=== PATIENT | male | born 1955 | race Caucasian/White ===

== ENCOUNTER 2020-11-28 05:52 | Inpatient (IN) | payer MEDICARE, OTHER ==
[2020-11-28] MEDS ORDERED: SODIUM CHLORIDE 0.9% 1,000 ML IV STA (06:12)
[2020-11-28] MEDS ORDERED: LABETALOL 5 MG/ML VIAL MDV IVP STA ×2 (06:13→08:52)
--- NOTE | 2020-11-28 06:22 | ED ---
Weakness HPI - General Chief complaint: Weakness Stated complaint: Weakness Time Seen by Provider: 11/28/20 06:07 Source: patient, EMS, RN notes reviewed Mode of arrival: EMS Limitations: no limitations - History of Present Illness Initial comments: This is a 65-year-old male presents emergency Department chief complaint of generalized weakness. Patient woke up states that his legs felt weak, or giving out. Patient states that he couldn't get up so he was yelling for his . He states currently he has no complaints. He denies any headache, dizziness, blurred vision, chest pain, shortness breath, abdominal pain or any focal weakness. Family stated that they thought some he said that he had some right- sided facial drooping but they did not notice it and he states that he is acting his usual self. - Related Data Home Medications Medication Instructions Recorded Confirmed No Known Home Medications 11/28/20 11/28/20 Allergies Allergy/AdvReac Type Severity Reaction Status Date / Time No Known Drug Allergies Allergy Unknown Verified 11/28/20 07:48 Review of Systems ROS Statement: Those systems with pertinent positive or pertinent negative responses have been documented in the HPI. ROS Other: All systems not noted in ROS Statement are negative. Past Medical History Past Medical History: Hyperlipidemia, Hypertension History of Any Multi-Drug Resistant Organisms: None Reported Past Surgical History: No Surgical Hx Reported Past Psychological History: No Psychological Hx Reported Smoking Status: Never smoker Past Alcohol Use History: None Reported Past Drug Use History: None Reported General Exam Limitations: no limitations General appearance: alert, in no apparent distress Head exam: Present: atraumatic, normocephalic, normal inspection Eye exam: Present: normal appearance, PERRL, EOMI. Absent: scleral icterus, conjunctival injection, periorbital swelling ENT exam: Present: normal exam, normal oropharynx, mucous membranes moist Neck exam: Present: normal inspection, full ROM. Absent: tenderness, meningismus, lymphadenopathy Respiratory exam: Present: normal lung sounds bilaterally. Absent: respiratory distress, wheezes, rales, rhonchi, stridor Cardiovascular Exam: Present: normal rhythm, tachycardia, normal heart sounds. Absent: systolic murmur, diastolic murmur, rubs, gallop, clicks GI/Abdominal exam: Present: soft, normal bowel sounds. Absent: distended, tenderness, guarding, rebound, rigid Extremities exam: Present: normal inspection, full ROM, normal capillary refill, other (Upper and lower extremity strength equal bilaterally). Absent: tenderness, pedal edema, joint swelling, calf tenderness Back exam: Present: full ROM Neurological exam: Present: alert, oriented X3, CN II-XII intact, reflexes normal, other (Finger to nose intact bilaterally). Absent: motor sensory deficit Skin exam: Present: warm, dry, intact, normal color. Absent: rash Course Vital Signs 11/28/20 11/28/20 11/28/20 05:54 05:59 06:58 Temperature 97.7 F Pulse Rate 109 H 105 H 96 Respiratory 16 16 16 Rate Blood Pressure 184/105 114/67 O2 Sat by Pulse 98 98 98 Oximetry 11/28/20 11/28/20 11/28/20 07:35 08:36 09:03 Temperature Pulse Rate 81 85 84 Respiratory 18 18 18 Rate Blood Pressure 161/92 198/101 164/97 O2 Sat by Pulse 98 98 98 Oximetry Medical Decision Making - Medical Decision Making Patient presented emergency from for generalized weakness. Patient had EMS reports that he had some right-sided weakness though any true 0, GCS of 15 with no focal deficits in emergency department. Workup reveals mild acute kidney injury, CT does not reveal any acute changes. Patient still very unsteady in his feet. Patient be admitted for further evaluation and workup including neurology consult. - Lab Data Result diagrams: 11/28/20 06:18 11/28/20 06:18 Lab Results 11/28/20 11/28/20 11/28/20 Range/Units 06:18 06:18 06:18 WBC 10.4 (3.8-10.6) k/uL RBC 4.46 (4.30-5.90) m/uL Hgb 12.6 L (13.0-17.5) gm/dL Hct 37.4 L (39.0-53.0) % MCV 83.8 (80.0-100.0) fL MCH 28.3 (25.0-35.0) pg MCHC 33.7 (31.0-37.0) g/dL RDW 15.8 H (11.5-15.5) % Plt Count 362 (150-450) k/uL MPV 7.3 Neutrophils % 65 % Lymphocytes % 24 % Monocytes % 5 % Eosinophils % 2 % Basophils % 1 % Neutrophils # 6.8 (1.3-7.7) k/uL Lymphocytes # 2.5 (1.0-4.8) k/uL Monocytes # 0.5 (0-1.0) k/uL Eosinophils # 0.3 (0-0.7) k/uL Basophils # 0.1 (0-0.2) k/uL PT 10.2 (9.0-12.0) sec INR 0.9 (<1.2) APTT 22.1 (22.0-30.0) sec Sodium 136 L (137-145) mmol/L Potassium 4.2 (3.5-5.1) mmol/L Chloride 105 (98-107) mmol/L Carbon Dioxide 21 L (22-30) mmol/L Anion Gap 10 mmol/L BUN 21 H (9-20) mg/dL Creatinine 1.36 H (0.66-1.25) mg/dL Est GFR (CKD-EPI)AfAm 62 (>60 ml/min/1.73 sqM) Est GFR (CKD-EPI)NonAf 54 (>60 ml/min/1.73 sqM) Glucose 169 H (74-99) mg/dL Lactic Ac Sepsis Rflx Plasma Lactic Acid Redd (0.7-2.0) mmol/L Calcium 8.9 (8.4-10.2) mg/dL Magnesium 1.8 (1.6-2.3) mg/dL Total Bilirubin 0.3 (0.2-1.3) mg/dL AST 22 (17-59) U/L ALT 10 (4-49) U/L Alkaline Phosphatase 102 (38-126) U/L Troponin I (0.000-0.034) ng/mL Total Protein 7.3 (6.3-8.2) g/dL Albumin 3.7 (3.5-5.0) g/dL Urine Color Urine Appearance (Clear) Urine pH (5.0-8.0) Ur Specific [place] (1.001-1.035) Urine Protein (Negative) Urine Glucose (UA) (Negative) Urine Ketones (Negative) Urine Blood (Negative) Urine Nitrite (Negative) Urine Bilirubin (Negative) Urine Urobilinogen (<2.0) mg/dL Ur Leukocyte Esterase (Negative) Urine RBC (0-5) /hpf Ur Squamous Epith Cells (0-4) /hpf Urine Mucus (None) /hpf 11/28/20 11/28/20 11/28/20 Range/Units 06:18 06:18 06:43 WBC (3.8-10.6) k/uL RBC (4.30-5.90) m/uL Hgb (13.0-17.5) gm/dL Hct (39.0-53.0) % MCV (80.0-100.0) fL MCH (25.0-35.0) pg MCHC (31.0-37.0) g/dL RDW (11.5-15.5) % Plt Count (150-450) k/uL MPV Neutrophils % % Lymphocytes % % Monocytes % % Eosinophils % % Basophils % % Neutrophils # (1.3-7.7) k/uL Lymphocytes # (1.0-4.8) k/uL Monocytes # (0-1.0) k/uL Eosinophils # (0-0.7) k/uL Basophils # (0-0.2) k/uL PT (9.0-12.0) sec INR (<1.2) APTT (22.0-30.0) sec Sodium (137-145) mmol/L Potassium (3.5-5.1) mmol/L Chloride (98-107) mmol/L Carbon Dioxide (22-30) mmol/L Anion Gap mmol/L BUN (9-20) mg/dL Creatinine (0.66-1.25) mg/dL Est GFR (CKD-EPI)AfAm (>60 ml/min/1.73 sqM) Est GFR (CKD-EPI)NonAf (>60 ml/min/1.73 sqM) Glucose (74-99) mg/dL Lactic Ac Sepsis Rflx Y Plasma Lactic Acid Redd 2.1 H* (0.7-2.0) mmol/L Calcium (8.4-10.2) mg/dL Magnesium (1.6-2.3) mg/dL Total Bilirubin (0.2-1.3) mg/dL AST (17-59) U/L ALT (4-49) U/L Alkaline Phosphatase (38-126) U/L Troponin I <0.012 (0.000-0.034) ng/mL Total Protein (6.3-8.2) g/dL Albumin (3.5-5.0) g/dL Urine Color Urine Appearance (Clear) Urine pH (5.0-8.0) Ur Specific [place] (1.001-1.035) Urine Protein (Negative) Urine Glucose (UA) (Negative) Urine Ketones (Negative) Urine Blood (Negative) Urine Nitrite (Negative) Urine Bilirubin (Negative) Urine Urobilinogen (<2.0) mg/dL Ur Leukocyte Esterase (Negative) Urine RBC (0-5) /hpf Ur Squamous Epith Cells (0-4) /hpf Urine Mucus (None) /hpf 11/28/20 Range/Units 08:31 WBC (3.8-10.6) k/uL RBC (4.30-5.90) m/uL Hgb (13.0-17.5) gm/dL Hct (39.0-53.0) % MCV (80.0-100.0) fL MCH (25.0-35.0) pg MCHC (31.0-37.0) g/dL RDW (11.5-15.5) % Plt Count (150-450) k/uL MPV Neutrophils % % Lymphocytes % % Monocytes % % Eosinophils % % Basophils % % Neutrophils # (1.3-7.7) k/uL Lymphocytes # (1.0-4.8) k/uL Monocytes # (0-1.0) k/uL Eosinophils # (0-0.7) k/uL Basophils # (0-0.2) k/uL PT (9.0-12.0) sec INR (<1.2) APTT (22.0-30.0) sec Sodium (137-145) mmol/L Potassium (3.5-5.1) mmol/L Chloride (98-107) mmol/L Carbon Dioxide (22-30) mmol/L Anion Gap mmol/L BUN (9-20) mg/dL Creatinine (0.66-1.25) mg/dL Est GFR (CKD-EPI)AfAm (>60 ml/min/1.73 sqM) Est GFR (CKD-EPI)NonAf (>60 ml/min/1.73 sqM) Glucose (74-99) mg/dL Lactic Ac Sepsis Rflx Plasma Lactic Acid Redd (0.7-2.0) mmol/L Calcium (8.4-10.2) mg/dL Magnesium (1.6-2.3) mg/dL Total Bilirubin (0.2-1.3) mg/dL AST (17-59) U/L ALT (4-49) U/L Alkaline Phosphatase (38-126) U/L Troponin I (0.000-0.034) ng/mL Total Protein (6.3-8.2) g/dL Albumin (3.5-5.0) g/dL Urine Color Light Yellow Urine Appearance Clear (Clear) Urine pH 6.0 (5.0-8.0) Ur Specific [place] 1.011 (1.001-1.035) Urine Protein 2+ H (Negative) Urine Glucose (UA) Negative (Negative) Urine Ketones Negative (Negative) Urine Blood Trace H (Negative) Urine Nitrite Negative (Negative) Urine Bilirubin Negative (Negative) Urine Urobilinogen <2.0 (<2.0) mg/dL Ur Leukocyte Esterase Negative (Negative) Urine RBC 2 (0-5) /hpf Ur Squamous Epith Cells <1 (0-4) /hpf Urine Mucus Rare H (None) /hpf Disposition Clinical Impression: TIA (transient ischemic attack), Weakness, ARAM (acute kidney injury) Disposition: ADMITTED IP TO THIS HOSP Condition: Fair Referrals: None,Stated [Primary Care Provider] - 1-2 days
[2020-11-28 06:43] LABS: Albumin 3.7 g/dL (3.5-5.0); Calcium 8.9 mg/dL (8.4-10.2); Magnesium 1.8 mg/dL (1.6-2.3); Potassium 4.2 mmol/L (3.5-5.1); Total Bilirubin 0.3 mg/dL (0.2-1.3); Total Protein 7.3 g/dL (6.3-8.2)
[2020-11-28 06:52] LABS: INR 0.9 (<1.2); Partial Thromboplastin Time 22.1 sec (22.0-30.0); Prothrombin Time 10.2 sec (9.0-12.0)
[2020-11-28 07:09] LABS: Basophils # (A) 0.1 k/uL (0-0.2); Basophils % (A) 1 %; Eosinophils # (A) 0.3 k/uL (0-0.7); Eosinophils % (A) 2 %; HCT 37.4 % (39.0-53.0); HGB 12.6 gm/dL (13.0-17.5); Lymphocytes # (A) 2.5 k/uL (1.0-4.8); Lymphocytes % (A) 24 %; MCH 28.3 pg (25.0-35.0); MCHC 33.7 g/dL (31.0-37.0); MCV 83.8 fL (80.0-100.0); Mean Platelet Volume 7.3; Monocytes # (A) 0.5 k/uL (0-1.0); Monocytes % (A) 5 %; Neutrophils # (A) 6.8 k/uL (1.3-7.7); Neutrophils % (A) 65 %; Platelet Count 362 k/uL (150-450); RBC 4.46 m/uL (4.30-5.90); RDW 15.8 % (11.5-15.5); WBC 10.4 k/uL (3.8-10.6)
--- NOTE | 2020-11-28 07:34 | CT ---
EXAMINATION TYPE: CT brain wo con DATE OF EXAM: 11/28/2020 COMPARISON: None HISTORY: Rt sided weakness CT DLP: 1052.[address] of the brain was performed. The ventricles, basal cisterns and sulci overlying the cerebral convexities demonstrate mild enlargem ent. There is no evidence for intracranial hemorrhage or sulcal effacement. There is decreased attenuation about the periventricular white matter and deep white matter of both c erebral hemispheres, compatible with chronic small vessel ischemia. Differential diagnosis does inclu de demyelination. No mass effects are seen.No midline shift. Osseous calvarium is intact. Pansinusitis. If symptoms persist consider MRI. IMPRESSION: 1. Age related atrophic and chronic small vessel ischemic change without acute intracranial process s een at this time.
--- NOTE | 2020-11-28 07:46 | XR ---
EXAMINATION TYPE: XR chest 2V DATE OF EXAM: 11/28/2020 COMPARISON: None INDICATION: Weakness TECHNIQUE: Frontal and lateral views of the chest are obtained. FINDINGS: The heart size is normal. The pulmonary vasculature is normal. The lungs are clear. IMPRESSION: 1. No acute pulmonary process.
[2020-11-28] MEDS ORDERED: LABETALOL SYRINGE 5 MG/ML IVP STA (08:31)
[2020-11-28 08:45] LABS: Appearance,Urine Clear (Clear); Bilirubin,Urine Negative (Negative); Blood,Urine Trace (Negative); Color,Urine Light Yellow; Glucose,Urine (UA) Negative (Negative); Ketones,Urine Negative (Negative); Leukocyte Esterase,Urine Negative (Negative); Mucus,Urine Rare /hpf; Nitrite,Urine Negative (Negative); Protein,Urine 2+ (Negative); RBC,Urine 2 /hpf (0-5); Specific Gravity,Urine 1.011 (1.001-1.035); Squamous Epithelial Cell,Urine <1 /hpf (0-4); Urobilinogen,Urine <2.0 mg/dL (<2.0)
[2020-11-28] MEDS ORDERED: ASPIRIN 325 MG TAB PO STA (09:33)
[2020-11-28] MEDS ORDERED: LABETALOL 5 MG/ML VIAL MDV IVP PRN (09:33)
[2020-11-28] MEDS: SODIUM CHLORIDE 0.9% 1,000 ML IV SCH (10:51)
[2020-11-28] MEDS ORDERED: LABETALOL 100 MG TAB PO STA (12:11)
[2020-11-28] MEDS ORDERED: ATORVASTATIN 80 MG TAB PO STA (12:46)
[2020-11-28] MEDS ORDERED: CLOPIDOGREL 75 MG TAB PO STA (12:47)
--- NOTE | 2020-11-28 13:11 | P.CNNES ---
History of Present Illness Consult date: 11/28/20 Requesting physician: Joe Sparks Reason for Consult: TIA History of Present Illness: This is a 65-year-old gentleman with history of hypertension (for about 15 years) as well as hyperlipidemia who is noncompliant with his medication, as well as he has bilateral hearing loss who presented emergency department on 11/28/2020 for right-sided weakness. Patient presents facility on 11/28/2020 around the 5:52 AM. Patient is accompanied with his family members ( and daughter). Patient stated that the he woke up around 5:00 in the morning today and the upon the getting out of bed heis right side is weak (upper and lower extremity) and he fell. His last normal state was around 11:00 at night yesterday. He denied any numbness that was new over the right side, visual disturbance, headache the, difficulty getting his words out or swallowing. His family noticed that he was slurring his speech in the morning but that resolved. Family did not notice any facial droop. Patient denies any history of stroke or seizure to his knowledge. With associated fall he denied any urinary, bowel incontinence, denied any tongue bite, denies any jerking of any extremities. Patient is not on any antiplatelets or anticoagulation. Patient is not taking any home medication. Per the patient when the EMS examined him they felt the patient had right facial droop but didn't see that as well and it is noted in the ED note the patient had bilateral leg weakness which the he stated he only has right arm and leg weakness. Of note patient states she has chronic neck pain as well as a chronic numbness tingling in the his feet been going on for years but denies any worsening. Currently he has no neck pain. Patient stated that the he has hypertension for at least 15 years as well as has history of hyperlipidemia and that stopped taking the medication on his own about 9 years ago since the he was uncomfortable law with the his physician. He doesn't remember what medication he was on. Patient denies of any tobacco use, alcohol use or any illicit drug use. Per family members his walking is off at baseline and he walks older than his age but today it more often now baseline now. Some of the workup in the hospital consisted of Initial vital signs: Blood pressure of 184/105, heart rate of 105, respiratory of 16, temperature of 97.7 Fahrenheit oral, and pulse ox of 98% room air. Patient a blood pressure what got as high as high as 198/101. He was getting labetalol IV pushes to lower the blood pressure. Then he had a blood pressure taken on the right arm which was 200/120 and the left arm over was 168/92. CBC the differential as a hemoglobin of 12.6 which is slightly low hematocrit of 37.4 otherwise it's unremarkable. Chemistry panel is initial glucose is 169 which slightly elevated, creatinine is 1.36 which is also elevated and there is no baseline creatinine in our facility, sodium is 136 which is minimally low but is unremarkable. Plasma lactic venous 2. [address] of the head is reported as age-related atrophic and chronic small vessel ischemic change without acute intracranial process seen at this time. Per ED team they felt no focal deficits. No IV tpa since no deficit and outside window. Review of Systems Review of system: The 12 point system was reviewed and apparent positive and negative per HPI. Past Medical History Past Medical History: Hyperlipidemia, Hypertension History of Any Multi-Drug Resistant Organisms: None Reported Past Surgical History: No Surgical Hx Reported Past Psychological History: No Psychological Hx Reported Smoking Status: Never smoker Past Alcohol Use History: None Reported Past Drug Use History: None Reported Medications and Allergies Home Medications Medication Instructions Recorded Confirmed Type No Known Home Medications 11/28/20 11/28/20 History Allergies Allergy/AdvReac Type Severity Reaction Status Date / Time No Known Drug Allergies Allergy Unknown Verified 11/28/20 07:48 Physical Examination - Vital Signs Vital Signs: Vital Signs Temp Pulse Pulse Resp BP BP BP 11/28/20 11:56 97.8 F 86 16 200/120 168/92 11/28/20 10:10 88 18 146/96 11/28/20 09:03 84 18 164/97 11/28/20 08:36 85 18 198/101 11/28/20 07:35 81 18 161/92 11/28/20 06:58 96 16 114/67 11/28/20 05:59 105 H 16 184/105 11/28/20 05:54 97.7 F 109 H 16 Pulse Ox 11/28/20 11:56 98 11/28/20 10:10 98 11/28/20 09:03 98 11/28/20 08:36 98 11/28/20 07:35 98 11/28/20 06:58 98 11/28/20 05:59 98 11/28/20 05:54 98 Intake and Output 11/27/20 11/28/20 11/28/20 22:59 06:59 14:59 Other: Weight 90.718 kg 77.5 kg GENERAL: The patient is lying in bed and is not in acute distress. CHEST: The heart rate is regular rate rhythm. No murmurs to auscultation. LUNG: Clear to auscultation bilaterally no wheezing noted throughout. Not labored breathing. ABDOMEN/GI: Bowel sounds present in all 4 quadrants. No tenderness to palpation throughout. NEUROLOGICAL: Higher mental function: The patient is awake, alert, oriented to self, place and time. Patient is following commands. No aphasia and no neglect. Cranial nerves: The pupils are round, equal and reactive to light and accom modation. Visual red are full to confrontation throughout. Extraocular movement is intact no nystagmus is noted. Facial sensation is normal to touch throughout. The facial strength is normal throughout. Hearing is moderately to severely decreased bilaterally to hand rub. Tongue is midline and moved [id number] without any difficulty. No dysarthria is noted. Shoulder shrug is normal bilaterally. Motor: Gait is unsteady walking and leaned towards the right. 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 Otherwise 5 over 5 throughout. Normal tone and bulk. Cerebellum: Unsteady with finger to nose and heel to hendrickson over the right (patient was overshooting over the right finger to nose). Otherwise normal over the left. Sensation: Sensation is normal to touch throughout. Reflexes (right/left): Biceps 2-3+; triceps 2+; brachioradialis 3+; patellar2+; ankles1+. Plantars are mute bilaterally. Results Calcium is 8.9, AST 22 ALT of 10 which is within normal limits. Coagulation study: PT of 10.2, INR 0.9 and PTT of 22.1. Urine analysis negative for urinary tract infection. - Laboratory Findings CBC and BMP: 11/28/20 06:18 11/28/20 06:18 Abnormal Lab Findings: Abnormal Labs 11/28/20 11/28/20 11/28/20 06:18 06:18 06:18 Hgb 12.6 L Hct 37.4 L RDW 15.8 H Sodium 136 L Carbon Dioxide 21 L BUN 21 H Creatinine 1.36 H Glucose 169 H Plasma Lactic Acid Redd 2.1 H* Urine Protein Urine Blood Urine Mucus 11/28/20 11/28/20 08:31 09:20 Hgb Hct RDW Sodium Carbon Dioxide BUN Creatinine Glucose Plasma Lactic Acid Redd 2.2 H* Urine Protein 2+ H Urine Blood Trace H Urine Mucus Rare H Assessment and Plan Assessment: Acute right-sided weakness (on examination he had right upper > lower extremity weakness and seems ataxic on the right) likely due to acute ischemic stroke. No IV tpa since outside window (last normal at 11pm on 11/27/20 and woke-up at 5am on 11/28/20 with symptoms). Stroke risk factors is uncontrolled hypertension Escalated hypertension (with hx of HTN for 15 years and is non-compliant with medications for past 9 years) History of Hyperlipidemia (non-compliant with medication) Hard of hearing of both ears Plan: The ED the patient was given aspirin 325 once. I started the patient on aspirin 81 mg and the Plavix 75 mg (he was not on any home antiplatelets). I loaded the patient with Plavix the 300 mg once. Started the patient on Lipitor 80 mg daily at bedtime with a loading dose now. Ordered MRI of the brain, 2-D echo, lipid panel, carotid duplex, TSH, hemoglobin A1c. Consulted PT and OT. Placed the patient on every 4 hours neuro checks and that continuous cardiac monitoring. Regarding the uncontrolled hypertension cardiology is consulted. From a neurological standpoint allow permissive hypertension for 24 hours then after that gradually controlled blood pressure, avoid any drastic blood pressure dropped more than the 15% within 24 hours to avoid any and ischemia. We'll defer the rest of the medical management to the primary team. The plan is discussed with the patient and his family members ( and daughter are at bedside) Thank you for the consultation. Darrick Carson MD Neuro-Hospitalist Time with Patient: Greater than 30
--- NOTE | 2020-11-28 13:55 | US ---
EXAMINATION TYPE: US carotid duplex BILAT DATE OF EXAM: 11/28/2020 COMPARISON: NONE CLINICAL HISTORY: stroke. Exam done portable. EXAM MEASUREMENTS: RIGHT: Peak Systolic Velocity (PSV) cm/sec ----- Right CCA: 76.7 ----- Right ICA: 76.3 ----- Right ECA: 135.0 ICA/CCA ratio: 1.0 RIGHT: End Diastole cm/sec ----- Right CCA: 16.3 ----- Right ICA: 19.7 ----- Right ECA: 14.1 LEFT: Peak Systolic Velocity (PSV) cm/sec ----- Left CCA: 57.1 ----- Left ICA: 78.2 ----- Left ECA: 96.6 ICA/CCA ratio: 1.4 LEFT: End Diastole cm/sec ----- Left CCA: 16.2 ----- Left ICA: 28.9 ----- Left ECA: 0.0 VERTEBRALS (direction of flow): Right Vertebral: Antegrade Left Vertebral: Antegrade Rhythm: Normal No significant stenosis IMPRESSION: 1. No significant flow-limiting stenosis NASCET criteria was used in interpretation of this exam? Criteria for Assigning % of Stenosis / Diameter reduction (Estimation based on the indirect measurements of the internal carotid artery velocities (ICA PSV). 1. Normal (no stenosis)=ICA PSV < 125 cm/s: ratio < 2.0: ICA EDV<40 cm/s. 2. Less than 50% stenosis=ICA PSV < 125 cm/s: ratio < 2.0: ICA EDV<40 cm/s. 3. 50 to 69% stenosis=ICA PSV of 125 to 230 cm/s: ration 2.0 ? 4.0: ICA EDV 40-100 cm/s. 4. Greater than 70% stenosis to near occlusion= ICA PSV > 230 cm/s: ratio > 4.0: ICA EDV > 100 cm/s. 5. Near occlusion= ICA PSV velocities may be low or undetectable: variable ratio and ICA EDV. 6. Total occlusion=unable to detect flow.
[2020-11-28] MEDS ORDERED: ACETAMINOPHEN TAB 500 MG TAB PO PRN (17:01)
[2020-11-28] MEDS ORDERED: ALPRAZolam 0.25 MG TAB PO PRN (17:01)
--- NOTE | 2020-11-28 17:12 | MR ---
EXAMINATION TYPE: MR brain wo con DATE OF EXAM: 11/28/2020 COMPARISON: None HISTORY: Right sided weakness and ataxia Images obtained of the brain without contrast. There is mild cerebral cortical atrophy. There is no mass effect nor midline shift. There is no evide nce of intracranial hemorrhage. On the diffusion images there is 1 cm area of increased signal in the posterior left thalamus. This has increased signal on the T2 and FLAIR images. The brainstem is inta ct. Cerebellum is intact. I see no evidence of an acute cortical infarct. Corpus callosum is intact. There is no evidence of orbital mass. There is extensive mucosal thickenin g in the paranasal sinuses. There is relative sparing of the left maxillary sinus. There is increased signal in the right mastoid sinus consistent with mastoiditis. IMPRESSION: Cerebral atrophy. Acute infarct left thalamus. Severe pansinusitis. Right-sided mastoiditis. Right side maxillary sinus disease is somewhat expansil e mucocele should be considered.
[2020-11-28 17:39] LABS: Amphetamine Screen,Urine Not Detected (NotDetected); Barbiturate Screen,Urine Not Detected (NotDetected); Benzodiazepines Screen,Urine Not Detected (NotDetected); Cocaine Screen,Urine Not Detected (NotDetected); Methadone Screen, Urine Not Detected (NotDetected); Opiate Screen,Urine Not Detected (NotDetected); Oxycodone Screen, Urine Not Detected (NotDetected); Phencyclidine Screen,Urine Not Detected (NotDetected); Tricyclic Antidepressant,Urine Not Detected (NotDetected); Urn Cannabinoid Scrn Not Detected (NotDetected)
--- NOTE | 2020-11-28 18:58 | HP ---
HISTORY AND PHYSICAL DATE OF SERVICE: 11/28/2020 CHIEF COMPLAINT: Weakness. HISTORY OF PRESENT ILLNESS: This 65-year-old gentleman with a past medical history of hypertension and hyperlipidemia, being followed by no primary physician in the outpatient setting, was admitted with complaints of weakness. The patient has apparently general weakness, right more than the left, and his legs were giving out, according to him, and he came to [facility] and was admitted for further evaluation and treatment. There is no history of any fever, rigor or chills. The patient was also seen by Neurology, who recommended MRI scan as well as antiplatelet agents. Further workup also. The initial CT scan of the brain, which was reviewed personally by me, showed age-related atrophic changes and chronic small-vessel ischemic changes; no acute changes. A carotid Doppler showed no significant stenosis. There is no history of any fever, rigor or chills. PAST MEDICAL HISTORY: History of hypertension, hyperlipidemia. HOME MEDICATIONS: None. ALLERGIES: NONE. FAMILY HISTORY: No history of heart disease or strokes in the family. SOCIAL HISTORY: No history of smoking. No history of alcohol intake. REVIEW OF SYSTEMS: ENT: No diminished hearing. No diminished vision. CARDIOVASCULAR SYSTEM: No angina, palpitations. RESPIRATORY SYSTEM: No cough, hemoptysis. GI: No nausea, vomiting. : No dysuria. NERVOUS SYSTEM: As mentioned earlier. ALLERGY/IMMUNOLOGY: No asthma or hay fever. MUSCULOSKELETAL: As mentioned earlier. HEMATOLOGY/ONCOLOGY: No history of anemia. ENDOCRINE: No history of diabetes, hypothyroidism. CONSTITUTIONAL: As mentioned earlier. DERMATOLOGY: Negative. RHEUMATOLOGY: Negative. PSYCHIATRY: As mentioned earlier. PHYSICAL EXAMINATION: Patient alert and oriented x3. Pulse 86, blood pressure 200/102, respirations 16, temperature 97.8, pulse ox 98% on room air. HEENT: Conjunctivae normal. Oral mucosa moist. NECK: No jugular venous distention. No carotid bruit. No lymph node enlargement. CARDIOVASCULAR: S1, S2 muffled. No S3. No S4. RESPIRATION: Breath sounds diminished at the bases. A few rhonchi. No crackles. ABDOMEN: Soft, nontender. No mass palpable. LEGS: No edema. No swelling. NERVOUS SYSTEM: Higher functions as mentioned earlier. Diffuse generalized weakness and minimal weakness on the right also present, more than the left. SKIN: No ulcer, rash, bleeding. JOINTS: No active deforming arthropathy. LABS: Lactic acid is 2.2, 2.8. WBC 10.4, hemoglobin 12.6. Creatinine is 1.36. UA noted. Chest x-ray which was reviewed personally by me showed no acute abnormality. ASSESSMENT: 1. Acute right-sided weakness, possibly left-sided acute stroke. 2. Gait dysfunction. 3. Hypertension. 4. Hyperlipidemia. 5. Increased creatinine with acute renal failure, possibly secondary to dehydration. 6. Hyponatremia. 7. Anemia, normocytic anemia of chronic disease. 8. Elevated lactic acid. Rule out sepsis. 9. Rule out sinusitis. RECOMMENDATIONS AND DISCUSSION: In this 65-year-old gentleman who presented with multiple complex medical issues, we will monitor the patient closely, continue the current medications, continue symptomatic treatment. Otherwise at this time await MRI scan. Other than that, continue with antiplatelet agents. DVT prophylaxis. Prognosis is guarded because of multiple complex medical issues. Further recommendations to follow. Also recommend that the patient follow up with a primary physician in the outpatient setting. ROBERTL / LOUN: [id number] /
[2020-11-28] MEDS: HEPARIN SODIUM,PORCINE/PF 5,000 UNIT/0.5 ML SYRINGE SQ SCH (21:26)
[2020-11-29] MEDS: SODIUM CHLORIDE 0.9% 1,000 ML IV SCH (00:04)
[2020-11-29] MEDS ORDERED: ASPIRIN 325 MG TAB PO SCH (09:00)
[2020-11-29] MEDS: ASPIRIN 81 MG PO SCH (09:01)
[2020-11-29] MEDS: CLOPIDOGREL 75 MG TAB PO SCH (09:02)
[2020-11-29] MEDS: HEPARIN SODIUM,PORCINE/PF 5,000 UNIT/0.5 ML SYRINGE SQ SCH ×2 (09:02→20:53)
[2020-11-29 09:42] LABS: Basophils # (A) 0.05 X 10*3/uL (0.00-0.10); Basophils % (A) 0.6 %; Eosinophils % (A) 3.4 %; HGB 11.4 g/dL (13.0-17.0); Lymphocytes # (A) 2.08 X 10*3/uL (0.90-5.00); Lymphocytes % (A) 23.3 %; MCH 26.8 pg (27.0-32.0); MCHC 31.7 g/dL (32.0-37.0); MCV 84.5 fL (80.0-97.0); Mean Platelet Volume 9.7 fL (9.5-12.2); Monocytes % (A) 7.9 %; Neutrophils # (A) 5.75 X 10*3/uL (1.80-7.70); Neutrophils % (A) 64.5 %; Platelet Count 304 X 10*3/uL (140-440); RBC 4.26 X 10*6/uL (4.40-5.60); RDW 15.2 % (11.5-14.5); WBC 8.91 X 10*3/uL (4.50-10.00)
[2020-11-29] MEDS: lisinopriL 5 MG TAB PO SCH (10:53)
[2020-11-29 11:14] LABS: African American GFR (CKD) 59.8 (60.0-200.0); Anion Gap 11.7 mmol/L (4.00-12.00); BUN/Creat Ratio 15.71 Ratio (12.00-20.00); Carbon Dioxide 21.3 mmol/L (21.6-31.8); Chol/HDL Ratio 6.3; Non-African American GFR(CKD) 51.6 (60.0-200.0); Potassium 4.3 mmol/L (3.5-5.5)
[2020-11-29] MEDS: MULTIVITAMINS, THERA 1 EACH TAB PO SCH (12:43)
[2020-11-29] MEDS: THIAMINE 100 MG TAB PO SCH (12:43)
[2020-11-29] MEDS: FOLIC ACID 1 MG TAB PO SCH (12:43)
--- NOTE | 2020-11-29 12:57 | P.CRDCN ---
History of Present Illness History of present illness: HISTORY OF PRESENTING ILLNESS This is a pleasant 65-year-old male past medical history significant for hypertension and dyslipidemia and noncompliance medication. He does not follow with a counselor dormitory. We have been asked to see in consultation for hypertension. Patient is seen and examined at bedside, no acute distress. Patient presented to the emergency department on 11/28/2020 for right-sided weakness. Patient stated that the he woke up around 5:00 in the morning and the upon the getting out of bed his right side was weak. His family noticed that he was slurring his speech in the morning but that resolved. EMS was called. EMS examined him they felt the patient had right facial droop. CT of the head is reported as age-related atrophic and chronic small vessel ischemic change without acute intracranial process seen. MRI of the brain revealed acute infarct left thalamus, cerebral atrophy, severe bradshaw sinusitis, right-sided mastoiditis. Carotid ultrasound revealed no significant flow-limiting stenosis. On admission patient's blood pressure was 180s/100s. EKG revealed sinus tachycardia, heart rate 110, nonspecific STT wave abnormalities. Laboratory data reviewed, WBC 8, Hgb 11.4, Plt 304, sodium 136, potassium 4.2, BUN 22, serum creatinine 1.4, hemoglobin A1c 8.0, magnesium 1.8, troponin negative 1, triglycerides 195, cholesterol 189, LDL 120, HDL 30, TSH within normal limits, urine tox screen negative. Patient denies any chest pain, shortness of breath, lightheadedness, dizziness. Patient denies any history of LA, previous stroke, coronary artery disease. He denies tobacco use or alcohol use. He denies family history of heart disease. Telemetry tracings indicate sinus rhythm heart rate in the 70s80s. Chest xray no acute cardiopulmonary process. REVIEW OF SYSTEMS At the time of my exam: CONSTITUTIONAL: Denies fever or chills. CARDIOVASCULAR: Denies chest pain, shortness of breath, orthopnea, PND or palpitations. RESPIRATORY: Denies cough. GASTROINTESTINAL: Denies abdominal pain, diarrhea, constipation, nausea or vomiting. MUSCULOSKELETAL: Denies myalgias. NEUROLOGIC: +right sided weakness +right sided facial droop. Denies numbness, tingling, headacbe or weakness. ENDOCRINE: Denies fatigue, weight change, polydipsia or polyurina. GENITOURINARY: Denies burning, hematuria or urgency with micturation. HEMATOLOGIC: Denies history of anemia or bleeding. PHYSICAL EXAMINATION Blood pressure 170/90 heart rate 90 afebrile and maintaining oxygen saturation on 98% on room air. CONSTITUTIONAL: No apparent distress. HEENT: Head is normocephalic. Pupils are equal, round. Sclerae anicteric. Mucous membranes of the mouth are moist. No JVD. No carotid bruit. CHEST EXAMINATION: Lungs are clear to auscultation. No chest wall tenderness is noted on palpation or with deep breathing. HEART EXAMINATION: Regular rate and rhythm. S1, S2 heard. No murmurs, gallops or rub. ABDOMEN: Soft, nontender. Positive bowel sounds. EXTREMITIES: 2+ peripheral pulses, no lower extremity edema and no calf tenderness. NEUROLOGIC EXAMINATION: Patient is awake, alert and oriented x3. Right sided facial asymmetry with smiling noted ASSESSMENT Acute right sided weakness Acute Inarct Left thalamus Newly diagnosed diabetes mellitus type 2 Hypertension, uncontrolled History of hyperlipidemia, noncompliant with medication PLAN 2D echocardiogram ordered will follow up on results Start lisinopril 5 mg daily, and adjust as needed. Continue aspirin, statin, Plavix Neurology following Further recommendations based on clinical course Nurse Practitioner note has been reviewed, I agree with a documented findings and plan of care. Patient was seen and examined. Past Medical History Past Medical History: Hyperlipidemia, Hypertension History of Any Multi-Drug Resistant Organisms: None Reported Past Surgical History: No Surgical Hx Reported Past Psychological History: No Psychological Hx Reported Smoking Status: Never smoker Past Alcohol Use History: None Reported Past Drug Use History: None Reported Medications and Allergies Home Medications Medication Instructions Recorded Confirmed Type No Known Home Medications 11/28/20 11/28/20 History Allergies Allergy/AdvReac Type Severity Reaction Status Date / Time No Known Drug Allergies Allergy Unknown Verified 11/28/20 07:48 Physical Exam Vitals: Vital Signs Temp Pulse Pulse Resp BP BP BP 11/29/20 08:21 97.6 F 90 18 170/90 11/29/20 02:13 97.7 F 85 20 177/94 11/28/20 20:47 97.5 F L 86 18 150/81 11/28/20 15:00 97.9 F 78 16 143/75 11/28/20 11:56 97.8 F 86 16 200/120 168/92 11/28/20 10:10 88 18 146/96 Pulse Ox 11/29/20 08:21 98 11/29/20 02:13 94 L 11/28/20 20:47 95 11/28/20 15:00 96 11/28/20 11:56 98 11/28/20 10:10 98 Intake and Output 11/28/20 11/29/20 11/29/20 22:59 06:59 14:59 Output Total 300 200 Balance -300 -200 Output: Urine 300 200 Other: Voiding Method Urinal Results 11/29/20 05:03 11/29/20 05:03 Current Medications Generic Name Dose Route Start Last Admin Trade Name Freq PRN Reason Stop Dose Admin Acetaminophen 500 mg 11/28/20 17:01 Acetaminophen Tab 500 Mg Tab PO Q6HR PRN Fever and/ or Pain Alprazolam 0.25 mg 11/28/20 17:01 Alprazolam 0.25 Mg Tab PO TID PRN Anxiety Aspirin 81 mg 11/29/20 09:00 11/29/20 09:01 Aspirin 81 Mg PO 81 mg DAILY [facility] Administration Atorvastatin Calcium 80 mg 11/29/20 21:00 Atorvastatin 80 Mg Tab PO HS [facility] Clopidogrel Bisulfate 75 mg 11/29/20 09:00 11/29/20 09:02 Clopidogrel 75 Mg Tab PO 75 mg DAILY [facility] Administration Folic Acid 1 mg 11/29/20 12:00 Folic Acid 1 Mg Tab PO DAILY@1200 [facility] Heparin Sodium (Porcine) 5,000 unit 11/28/20 21:00 11/29/20 09:02 Heparin Sodium,Porcine/Pf 5,000 Unit/0.5 Ml Syringe SQ 5,000 unit Q12HR [facility] Administration Labetalol HCl 10 mg 11/28/20 09:33 Labetalol 5 Mg/Ml Vial Mdv IVP 11/29/20 09:34 Q1HR PRN Hypertension Lisinopril 5 mg 11/29/20 09:15 Lisinopril 5 Mg Tab PO DAILY [facility] Multivitamins 1 each 11/29/20 12:00 Multivitamins, Thera 1 Each Tab PO DAILY@1200 [facility] Thiamine HCl 100 mg 11/29/20 12:00 Thiamine 100 Mg Tab PO DAILY@1200 [facility] Intake and Output 11/28/20 11/29/20 11/29/20 22:59 06:59 14:59 Output Total 300 200 Balance -300 -200 Output: Urine 300 200 Other: Voiding Method Urinal 11/28/20 06:18 11/28/20 06:18
--- NOTE | 2020-11-29 13:11 | P.PN ---
Subjective Progress Note Date: 11/29/20 Patient seen at bedside and he feels slightly better today. He denies of any new neurological problems. Objective - Vital Signs Vital signs: Vital Signs Temp 97.6 F 11/29/20 08:21 Pulse 90 11/29/20 08:21 Resp 18 11/29/20 08:21 BP 170/90 11/29/20 08:21 Pulse Ox 98 11/29/20 08:21 Intake & Output 11/28/20 11/29/20 11/29/20 18:59 06:59 18:59 Output Total 500 Balance -500 Weight 77.5 kg Output: Urine 500 Other: Voiding Method Urinal # Voids 1 - Exam GENERAL: The patient is lying in bed and is not in acute distress. NEUROLOGICAL: Higher mental function: The patient is awake, alert, oriented to self, place and time. Patient is following commands. No aphasia and no neglect. Cranial nerves: The pupils are round, equal and reactive to light and accommodation. Visual red are full to confrontation throughout. Extraocular movement is intact no nystagmus is noted. Facial sensation is normal to touch throughout. The facial strength is normal throughout. Hearing is moderately to severely decreased bilaterally to hand rub. Tongue is midline and moved [id number] without any difficulty. No dysarthria is noted. Shoulder shrug is normal bilaterally. Motor: Gait is unsteady walking and leaned towards the right. 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 Otherwise 5 over 5 throughout. Normal tone and bulk. Cerebellum: Unsteady with finger to nose and heel to hendrickson over the right (patient was overshooting over the right finger to nose). Otherwise normal over the left. Sensation: Sensation is normal to touch throughout. Reflexes (right/left): Biceps 2-3+; triceps 2+; brachioradialis 3+; patellar2+; ankles1+. Plantars are mute bilaterally. WORK-UP: TSH is 2.140 which is considered within normal limits Hemoglobin A1c is 8.0 which is elevated (Newly diagnosed DM) CT of the head is reported as age-related atrophic and chronic small vessel ischemic change without acute intracranial process seen at this time. MRI the brain is reported as cerebral atrophy. Acute infarct in the left thalam us. Severe. Sinusitis. Right-sided mastoiditis. Right side maxillary sinus disease somewhat expansile mucocele should be considered. Carotid duplex is reported as no significant flow limiting stenosis. - Labs CBC & Chem 7: 11/29/20 05:03 11/29/20 05:03 Labs: Abnormal Lab Results - Last 24 Hours (Table) 11/28/20 11/28/20 11/28/20 Range/Units 08:31 09:20 12:34 Hemoglobin A1c (4.0-6.0) % Plasma Lactic Acid Redd 2.2 H* 2.8 H* (0.7-2.0) mmol/L Urine Protein 2+ H (Negative) Urine Blood Trace H (Negative) Urine Mucus Rare H (None) /hpf 11/28/20 11/28/20 Range/Units 12:45 15:48 Hemoglobin A1c 8.0 H (4.0-6.0) % Plasma Lactic Acid Redd 3.0 H* (0.7-2.0) mmol/L Urine Protein (Negative) Urine Blood (Negative) Urine Mucus (None) /hpf Assessment and Plan Assessment: Acute ischemic stroke (MRI Brain shows ischemia over the left thalamus. Presented with right-sided weakness (on examination he had right upper > lower extremity weakness and seems ataxic on the right). No IV tpa since outside window (last normal at 11pm on 11/27/20 and woke-up at 5am on 11/28/20 with symptoms). Stroke is due to small vessel disease (uncontrolled hypertension, hyperlipidemia and has newly diagnosed DM). Escalated hypertension (with hx of HTN for 15 years and is non-compliant with medications for past 9 years) Newly diagnosed Diabetes (HbA1c 8.0) History of Hyperlipidemia (non-compliant with medication) Hard of hearing of both ears Plan: Continue aspirin 81 mg and the Plavix 75 mg (he was not on any home antiplatelets). Continue Lipitor 80 mg daily at bedtime for secondary stroke prophylaxis. Pending 2-D echo, lipid panel. Consulted PT and OT. Placed the patient on every 4 hours neuro check. On continuous cardiac monitoring: Sinus rhythm in 60-90's. Regarding the uncontrolled hypertension cardiology is consulted. Will defer management to the primary team and cardiology team. We'll defer the rest of the medical management to the primary team. Upon discharge, the patient needs to follow-up with a neurologist as outpatient within 1-2 weeks. The plan is discussed with the patient and his nurse. Darrick Carson MD Neuro-Hospitalist Time with Patient: Less than 30
--- NOTE | 2020-11-29 15:21 | ECHOF ---
Referral Reason:stroke MEASUREMENTS -------- HEIGHT: 157.5 cm WEIGHT: 77.1 kg BP: 168/92 IVSd: 1.1 cm (0.6 - 1.1) LVIDd: 4.9 cm (3.9 - 5.3) LVPWd: 1.1 cm (0.6 - 1.1) EDV(Teich): 115 ml IVSs: 1.8 cm LVIDs: 4.0 cm LVPWs: 1.7 cm %IVS Thck: 57 % ESV(Teich): 70 ml EF(Teich): 39 % %FS: 19 % SV(Teich): 44 ml LA Diam: 3.3 cm (2.7 - 3.8) RVIDd: 3.2 cm (< 3.3) LVLd A4C: 8.2 cm LVEDV MOD A4C: 150 ml LVLs A4C: 6.9 cm LVESV MOD A4C: 79 ml LVEF MOD A4C: 47 % SV MOD A4C: 71 ml LVLd A2C: 7.0 cm LVEDV MOD A2C: 57 ml LVLs A2C: 5.7 cm LVESV MOD A2C: 33 ml LVEF MOD A2C: 42 % SV MOD A2C: 24 ml EF Biplane: 43 % LVEDV MOD BP: 98 ml LVESV MOD BP: 55 ml LALs A4C: 5.0 cm LAAs A4C: 16.3 cm LAESV A-L A4C: 46 ml LAESV MOD A4C: 44 ml LALs A2C: 5.0 cm LAAs A2C: 12.6 cm LAESV A-L A2C: 27 ml LAESV MOD A2C: 26 ml LAESV(A-L): 35 ml LAESV Index (A-L): 19.71 ml/m Ao Diam: 3.5 cm (2.0 - 3.7) AV Cusp: 2.1 cm (1.5 - 2.6) EPSS: 1.3 cm MV E Emanuel: 1.12 m/s MV DecT: 107 ms MV Dec [place]: 10.5 m/s MV A Emanuel: 0.30 m/s MV E/A Ratio: 3.76 MV PHT: 31 ms AV Vmax: 1.08 m/s AV maxP.70 mmHg MV EF SLOPE: 32.68 mm/s (70 - 150) MV EXCURSION: 11.53 mm (> 18.000) FINDINGS -------- Sinus rhythm. This was a technically adequate study. The left ventricular size is normal. There is borderline concentric left ventricular hypertrophy. Overall left ventricular systolic function is mild-moderately impaired with, an EF between 40 - 45 % . Basal anterior LV wall motion is hypokinetic. Mid anterior LV wall motion is hypokinetic. The right ventricle is normal in size. Normal LA size by volume 22+/-6 ml/m2. The right atrium is normal in size. Interatrial and interventricular septum intact. The aortic valve is trileaflet, and appears structurally normal. No aortic stenosis or regurgitation. The mitral valve is normal. The tricuspid valve appears structurally normal. Unable to estimate RVSP due to inadequate TR jet s pectral doppler profile. There is no pulmonic regurgitation present. The aortic root size is normal. Normal inferior vena cava with normal inspiratory collapse consistent with estimated right atrial pre ssure of 5 mmHg. There is no pericardial effusion. CONCLUSIONS -------- 1. The left ventricular size is normal. 2. There is borderline concentric left ventricular hypertrophy. 3. Overall left ventricular systolic function is mild-moderately impaired with, an EF between 40 - 45 %. 4. Basal anterior LV wall motion is hypokinetic. 5. Mid anterior LV wall motion is hypokinetic. 6. The aortic valve is trileaflet, and appears structurally normal. No aortic stenosis or regurgitati on. 7. There is no pericardial effusion. CLINICAL EVALUATOR: TERESA Aguillon
--- NOTE | 2020-11-29 16:08 | PN ---
PROGRESS NOTE DATE OF SERVICE: 11/29/2020. This 65-year-old gentleman who was admitted with right-sided weakness was found to have left thalamic infarct on MRI scan. Cardiology and Neurology are following the patient closely. No chest pain. No palpitations. No fever. PHYSICAL EXAMINATION: Alert and oriented x2, mildly dysarthric. Pulse 90, blood pressure 170/90, respiration 18, temperature 97.6, pulse ox 98% on room air. HEENT: Conjunctivae normal. NECK: No jugular venous distention. CARDIOVASCULAR: S1, S2 muffled. RESPIRATION: Breath sounds diminished at the bases. A few scattered rhonchi. ABDOMEN: Soft, nontender. LEGS: No edema. No swelling. NERVOUS SYSTEM: Minimal weakness on the right side. Facial asymmetry also present. LAB STUDIES: WBC 8.3, hemoglobin 11.4. Lactic acid is 3. ASSESSMENT: 1. Acute right-sided weakness caused by left-sided acute cerebrovascular accident and thalamic infarct. 2. Gait dysfunction. 3. Hypertension. 4. Hyperlipidemia. 5. Increased creatinine with acute renal failure, possibly secondary to dehydration, present on admission. 6. Hyponatremia. 7. Anemia, normocytic anemia of chronic disease. 8. Elevated lactic acid, present on admission. No evidence of sepsis. 9. There is some evidence of sinusitis in the CT scan. I will recommend some antibiotics as well. MMODL / IJN: [id number] /
[2020-11-29 17:40] LABS: Glucose,Whole Blood 193 mg/dL (75-99)
[2020-11-29] MEDS: INSULIN ASPART (NovoLOG) 100 UNIT/ML VIAL SQ SCH ×2 (17:47→20:53)
[2020-11-29 20:50] LABS: Glucose,Whole Blood 189 mg/dL (75-99)
[2020-11-29] MEDS ORDERED: MELATONIN 3 MG TABLET PO SCH (21:00)
[2020-11-29] MEDS ORDERED: ATORVASTATIN 80 MG TAB PO SCH (21:00)
[2020-11-30 07:06] LABS: African American GFR (CKD) 50 (>60 ml/min/1.73 sqM); Anion Gap 8 mmol/L; Blood Urea Nitrogen 25 mg/dL (9-20); Calcium 8.8 mg/dL (8.4-10.2); Carbon Dioxide 22 mmol/L (22-30); Chloride 108 mmol/L (98-107); Glucose 139 mg/dL (74-99); Non-African American GFR(CKD) 43 (>60 ml/min/1.73 sqM); Potassium 4.1 mmol/L (3.5-5.1); Sodium 138 mmol/L (137-145)
[2020-11-30 07:30] LABS: Glucose,Whole Blood 137 mg/dL (75-99)
[2020-11-30] MEDS: INSULIN ASPART (NovoLOG) 100 UNIT/ML VIAL SQ SCH ×2 (08:25→13:20)
[2020-11-30] MEDS: lisinopriL 5 MG TAB PO SCH (08:26)
[2020-11-30] MEDS: CLOPIDOGREL 75 MG TAB PO SCH (08:26)
[2020-11-30] MEDS: HEPARIN SODIUM,PORCINE/PF 5,000 UNIT/0.5 ML SYRINGE SQ SCH (08:26)
[2020-11-30] MEDS: ASPIRIN 81 MG PO SCH (08:26)
[2020-11-30] MEDS ORDERED: lisinopriL 5 MG TAB PO ONE (09:15)
[2020-11-30 09:40] LABS: Basophils # (A) 0.04 X 10*3/uL (0.00-0.10); Basophils % (A) 0.5 %; Eosinophils # (A) 0.37 X 10*3/uL (0.04-0.35); Eosinophils % (A) 4.2 %; HCT 33.3 % (39.6-50.0); HGB 10.7 g/dL (13.0-17.0); Lymphocytes # (A) 2.31 X 10*3/uL (0.90-5.00); Lymphocytes % (A) 26.3 %; MCH 26.7 pg (27.0-32.0); MCHC 32.1 g/dL (32.0-37.0); Mean Platelet Volume 9.9 fL (9.5-12.2); Monocytes # (A) 0.66 X 10*3/uL (0.20-1.00); Monocytes % (A) 7.5 %; Neutrophils # (A) 5.38 X 10*3/uL (1.80-7.70); Platelet Count 285 X 10*3/uL (140-440); RBC 4.01 X 10*6/uL (4.40-5.60); RDW 15.2 % (11.5-14.5)
[2020-11-30 10:33] VITALS: BP 186/90; PULSE 77; RESP 20; TEMP 97.5
--- NOTE | 2020-11-30 11:53 | P.PN ---
Subjective Progress Note Date: 11/30/20 HISTORY OF PRESENTING ILLNESS This is a pleasant 65-year-old male past medical history significant for hyp ertension and dyslipidemia and noncompliance medication. He does not follow with a reed dipper. We have been asked to see in consultation for hypertension. Patient is seen and examined at bedside, no acute distress. Patient presented to the emergency department on 11/28/2020 for right-sided weakness. Patient stated that the he woke up around 5:00 in the morning and the upon the getting out of bed his right side was weak. His family noticed that he was slurring his speech in the morning but that resolved. EMS was called. EMS examined him they felt the patient had right facial droop. CT of the head is reported as age-related atrophic and chronic small vessel ischemic change without acute intracranial process seen. MRI of the brain revealed acute infarct left thalamus, cerebral atrophy, severe bradshaw sinusitis, right-sided mastoiditis. Carotid ultrasound revealed no significant flow-limiting stenosis. On admission patient's blood pressure was 180s/100s. EKG revealed sinus tachycardia, heart rate 110, nonspecific STT wave abnormalities. Laboratory data reviewed, WBC 8, Hgb 11.4, Plt 304, sodium 136, potassium 4.2, BUN 22, serum creatinine 1.4, hemoglobin A1c 8.0, magnesium 1.8, troponin negative 1, triglycerides 195, cholesterol 189, LDL 120, HDL 30, TSH within normal limits, urine tox screen negative. Patient denies any chest pain, shortness of breath, lightheadedness, dizziness. Patient denies any history of CT, previous stroke, coronary artery disease. He denies tobacco use or alcohol use. He denies family history of heart disease. Telemetry tracings indicate sinus rhythm heart rate in the 70s80s. Chest xray no acute cardiopulmonary process. 11/30/2020 Patient examined this morning at the bedside. He denies chest pain or pressure. Denies shortness of breath. Blood pressure remains elevated this morning with a reading of 186/90. Echocardiogram completed revealed ejection fraction 40-45%. Basal anterior and mid anterior LV wall motion hypokinesis. PHYSICAL EXAMINATION CONSTITUTIONAL: No apparent distress. HEENT: Head is normocephalic. Pupils are equal, round. Sclerae anicteric. Mucous membranes of the mouth are moist. No JVD. No carotid bruit. CHEST EXAMINATION: Lungs are clear to auscultation. No chest wall tenderness is noted on palpation or with deep breathing. HEART EXAMINATION: Regular rate and rhythm. S1, S2 heard. No murmurs, gallops or rub. EXTREMITIES: 2+ peripheral pulses, no lower extremity edema and no calf tenderness. ASSESSMENT Acute right sided weakness Acute Infarct Left thalamus Newly diagnosed diabetes mellitus type 2 Hypertension, uncontrolled History of hyperlipidemia, noncompliant with medication PLAN Continue current cardiac medications Increase lisinopril to 10 mg daily. Continue to monitor blood pressure Neurology following Further recommendations based on clinical course Nurse Practitioner note has been reviewed, I agree with a documented findings and plan of care. Patient was seen and examined. Objective - Vital Signs Vital signs: Vital Signs Temp 97.5 F L 11/30/20 07:00 Pulse 77 11/30/20 07:00 Resp 20 11/30/20 07:00 BP 186/90 11/30/20 07:00 Pulse Ox 96 11/30/20 07:00 Intake & Output 11/29/20 11/30/20 11/30/20 18:59 06:59 18:59 Output Total 280 350 Balance -280 -350 Output: Urine 280 350 Other: Voiding Method Urinal Urinal # Voids 1 2 - Labs CBC & Chem 7: 11/30/20 06:21 11/30/20 06:21 Labs: Abnormal Lab Results - Last 24 Hours (Table) 11/29/20 11/29/20 11/30/20 Range/Units 17:38 20:48 06:21 RBC 4.01 L (4.40-5.60) X 10*6/uL Hgb 10.7 L (13.0-17.0) g/dL Hct 33.3 L (39.6-50.0) % MCH 26.7 L (27.0-32.0) pg RDW 15.2 H (11.5-14.5) % Eosinophils # 0.37 H (0.04-0.35) X 10*3/uL Chloride (98-107) mmol/L BUN (9-20) mg/dL Creatinine (0.66-1.25) mg/dL Glucose (74-99) mg/dL POC Glucose (mg/dL) 193 H 189 H (75-99) mg/dL 11/30/20 11/30/20 Range/Units 06:21 07:29 RBC (4.40-5.60) X 10*6/uL Hgb (13.0-17.0) g/dL Hct (39.6-50.0) % MCH (27.0-32.0) pg RDW (11.5-14.5) % Eosinophils # (0.04-0.35) X 10*3/uL Chloride 108 H (98-107) mmol/L BUN 25 H (9-20) mg/dL Creatinine 1.62 H (0.66-1.25) mg/dL Glucose 139 H (74-99) mg/dL POC Glucose (mg/dL) 137 H (75-99) mg/dL
[2020-11-30 12:16] LABS: Glucose,Whole Blood 229 mg/dL (75-99)
[2020-11-30] MEDS: FOLIC ACID 1 MG TAB PO SCH (13:21)
[2020-11-30] MEDS: MULTIVITAMINS, THERA 1 EACH TAB PO SCH (13:21)
[2020-11-30] MEDS: THIAMINE 100 MG TAB PO SCH (13:21)
--- NOTE | 2020-11-30 14:38 | P.PN ---
Subjective Progress Note Date: 11/30/20 Patient seen at bedside and he feels he is doing somewhat better today compared to his initial presentation. Denies of any new neurological deficits. Objective - Vital Signs Vital signs: Vital Signs Temp 97.5 F L 11/30/20 07:00 Pulse 77 11/30/20 07:00 Resp 20 11/30/20 07:00 BP 186/90 11/30/20 07:00 Pulse Ox 96 11/30/20 07:00 Intake & Output 11/29/20 11/30/20 11/30/20 18:59 06:59 18:59 Output Total 280 350 Balance -280 -350 Output: Urine 280 350 Other: Voiding Method Urinal Urinal # Voids 1 2 - Exam GENERAL: The patient is lying in bed and is not in acute distress. NEUROLOGICAL: Higher mental function: The patient is awake, alert, oriented to self, place and time. Patient is following commands. No aphasia and no neglect. Cranial nerves: The pupils are round, equal and reactive to light and accommodation. Visual red are full to confrontation throughout. Extraocular movement is intact no nystagmus is noted. Facial sensation is normal to touch throughout. The facial strength is normal throughout. Hearing is moderately to severely decreased bilaterally to hand rub. Tongue is midline and moved side-to -side without any difficulty. No dysarthria is noted. Shoulder shrug is normal bilaterally. Motor: Gait is unsteady walking and leaned towards the right. The strength is right upper is 4+ and right hand donor relations manager is 4+ to 5-; right lower is right knee extensionflexion is 5-. Otherwise 5 over 5 throughout. Normal tone and bulk. Cerebellum: Unsteady with finger to nose and heel to hendrickson over the right (patient was overshooting over the right finger to nose). Otherwise normal over the left. Sensation: Sensation is normal to touch throughout. Reflexes (right/left): Biceps 2-3+; triceps 2+; brachioradialis 3+; patellar2+; ankles1+. Plantars are mute bilaterally. WORK-UP: TSH is 2.140 which is considered within normal limits Hemoglobin A1c is 8.0 which is elevated (Newly diagnosed DM) Lipid panel is triglyceride 195, cholesterol 180, LDL of 120, HDL is 30. CT of the head is reported as age-related atrophic and chronic small vessel ischemic change without acute intracranial process seen at this time. MRI the brain is reported as cerebral atrophy. Acute infarct in the left thalamus. Severe. Sinusitis. Right-sided mastoiditis. Right side maxillary sinus disease somewhat expansile mucocele should be considered. Carotid duplex is reported as no significant flow limiting stenosis. 2-D echo is reported as borderline concentric left ventricular hypertrophy. Ejection fraction of 40-45%. Basal anterior left ventricle wall motion hypokinetic. Mild anterior left ventricle wall motion is hypokinetic. Normal left atrial size by volume. - Labs CBC & Chem 7: 11/30/20 06:21 11/30/20 06:21 Labs: Abnormal Lab Results - Last 24 Hours (Table) 11/29/20 11/29/20 11/30/20 Range/Units 17:38 20:48 06:21 RBC 4.01 L (4.40-5.60) X 10*6/uL Hgb 10.7 L (13.0-17.0) g/dL Hct 33.3 L (39.6-50.0) % MCH 26.7 L (27.0-32.0) pg RDW 15.2 H (11.5-14.5) % Eosinophils # 0.37 H (0.04-0.35) X 10*3/uL Chloride (98-107) mmol/L BUN (9-20) mg/dL Creatinine (0.66-1.25) mg/dL Glucose (74-99) mg/dL POC Glucose (mg/dL) 193 H 189 H (75-99) mg/dL 11/30/20 11/30/20 11/30/20 Range/Units 06:21 07:29 12:14 RBC (4.40-5.60) X 10*6/uL Hgb (13.0-17.0) g/dL Hct (39.6-50.0) % MCH (27.0-32.0) pg RDW (11.5-14.5) % Eosinophils # (0.04-0.35) X 10*3/uL Chloride 108 H (98-107) mmol/L BUN 25 H (9-20) mg/dL Creatinine 1.62 H (0.66-1.25) mg/dL Glucose 139 H (74-99) mg/dL POC Glucose (mg/dL) 137 H 229 H (75-99) mg/dL Assessment and Plan Assessment: * Acute ischemic stroke (MRI Brain shows ischemia over the left thalamus. Presented with right-sided weakness (on examination he had right upper > lower extremity weakness and seems ataxic on the right). No IV tpa since outside window (last normal at 11pm on 11/27/20 and woke-up at 5am on 11/28/20 with symptoms). Stroke is due to small vessel disease (uncontrolled hypertension, hyperlipidemia and has newly diagnosed DM). * Escalated hypertension (with hx of HTN for 15 years and is non-compliant with medications for past 9 years) * Newly diagnosed Diabetes (HbA1c 8.0) * Mild to moderately impaired ejection fraction 40-45% * History of Hyperlipidemia (non-compliant with medication) * Hard of hearing of both ears Plan: * Continue aspirin 81 mg and the Plavix 75 mg (he was not on any home antiplatelets) for 21 days. After 21 days discontinue Plavix and continue aspirin indefinitely. * Decreased Lipitor from 80 mg to 40mg daily at bedtime for secondary stroke prophylaxis. LDL goal stroke is less than 70 * Consulted PT and OT. * On every 4 hours neuro check. * On continuous cardiac monitoring: Sinus rhythm. * Regarding the uncontrolled hypertension cardiology is consulted. Will defer management to the primary team and cardiology team. * We'll defer the rest of the medical management to the primary team. * For DVT prophylaxis: on Subq heparin 5000U every 12 hours. * Upon discharge, the patient needs to follow-up with a neurologist as outpatient within 1-2 weeks. The plan is discussed with the patient and his family members (daughter and ). There is no further neurological workup needed. Patient is clear from neurological stand point. Darrick Carson MD Neuro-Hospitalist Time with Patient: Less than 30
[2020-11-30 14:54] VITALS: BMI 31.2
--- NOTE | 2020-11-30 16:19 | P.DS ---
Providers Date of admission: 11/30/20 08:04 Expected date of discharge: 11/30/20 Attending physician: Silverio Dorsey Consults: 11/28/20 09:33 Consult Physician Urgent Consulting Provider: Darrick Carson Consult Reason/Comments: TIA Do you want consulting provider notified?: Yes 11/28/20 12:13 Consult Physician Routine Consulting Provider: Gonzalo Mesa Consult Reason/Comments: elevated BP weakness Do you want consulting provider notified?: Yes Primary care physician: Stated None Hospital Course: Final diagnosis Acute right side weakness caused by left-sided acute cerebrovascular accident and thalamic infarct Gait dysfunction New onset diabetes mellitus with hemoglobin A1c of 8, uncontrolled with hyperglycemia Hypertension Hyperlipidemia Increased creatinine with acute renal failure, possibly secondary to dehydration, present on admission Hyponatremia anemia, normocytic anemia of chronic disease Elevated lactic acid, present on admission with no evidence of sepsis Evidence of sinusitis as noted on the CT and MRI Full code Discharge disposition Patient is being discharged in a stable condition with guarded prognosis to home. Patient will follow-up with Dr. Tejeda in the outpatient setting upon discharge. Patient also instructed to follow-up with cardiology and neurology in the outpatient setting. Appointments have been made. Patient will continue on aspirin and Plavix and statin along with metformin 500 mg twice daily. Total time taken is greater than 35 minutes. Hospital course This is a 65-year-old male who was recently admitted with right-sided weakness and found to have the left thalamus infarct on the MRI and being closely monitored. Patient was started on aspirin and Plavix along with statin and lisinopril for blood pressure control. Patient's hemoglobin A1c was found to be 8 with newly diagnosed diabetes mellitus. Will start oral metformin 500 mg twice daily and recommend establishing with primary care provider with resources provider and following closely with neurology in 1-2 weeks along with cardiology outpatient. events manager providing glucometer and recommend the patient to continue to monitor blood sugars closely and keep a diary for primary care follow-up. Recommend diet modifications as well. Strongly recommend patient to establish with primary care provider. Encourage the patient to obtain a blood pressure cuff and closely monitor blood pressure readings and keep a diary for primary follow-up. Started on lisinopril 10 mg per cardiology and will continue upon discharge. Sinusitis also noted on MRI and will send a prescription for Augmentin twice daily for 5 days. Currently no reports of chest pain, shortness of breath, or palpitations. Patient is afebrile. No reports of nausea or vomiting and patient is tolerating diet. Patient will be discharged home today. Guarded prognosis. On exam vital signs are stable. Cardio S1, S2 are muffled. Respiratory system shows diminished breath sounds at the bases with no wheezing or rhonchi noted. Abdomen is soft and nontender. Nervous system shows no focal deficits. Please refer to medication reconciliation sheet for a list of medications. Patient Condition at Discharge: Fair Plan - Discharge Summary New Discharge Prescriptions: New Atorvastatin [Lipitor] 40 mg PO HS #30 tab Thiamine [Vitamin B-1] 100 mg PO DAILY@1200 #30 tab lisinopriL [Zestril] 10 mg PO DAILY #30 tab Aspirin 81 mg PO DAILY 30 Days #30 tab metFORMIN HCL 500 mg PO BID 30 Days #60 tablet Amoxic-Pot Clav 875-125Mg [Augmentin 875-125] 1 tab PO Q12HR 5 Days #10 tab Folic Acid 1 mg PO DAILY@1200 #30 tab Multivitamins, Thera [Multivitamin (formulary)] 1 each PO DAILY@1200 #30 tab Clopidogrel [Plavix] 75 mg PO DAILY #30 tab Acetaminophen Tab [Tylenol] 500 mg PO Q6HR PRN tab PRN Reason: Fever And/ Or Pain Discharge Medication List Acetaminophen Tab [Tylenol] 500 mg PO Q6HR PRN tab 11/30/20 [Rx] Amoxic-Pot Clav 875-125Mg [Augmentin 875-125] 1 tab PO Q12HR 5 Days #10 tab 11/30/20 [Rx] Aspirin 81 mg PO DAILY 30 Days #30 tab 11/30/20 [Rx] Atorvastatin [Lipitor] 40 mg PO HS #30 tab 11/30/20 [Rx] Clopidogrel [Plavix] 75 mg PO DAILY #30 tab 11/30/20 [Rx] Folic Acid 1 mg PO DAILY@1200 #30 tab 11/30/20 [Rx] Multivitamins, Thera [Multivitamin (formulary)] 1 each PO DAILY@1200 #30 tab 11/30/20 [Rx] Thiamine [Vitamin B-1] 100 mg PO DAILY@1200 #30 tab 11/30/20 [Rx] lisinopriL [Zestril] 10 mg PO DAILY #30 tab 11/30/20 [Rx] metFORMIN HCL 500 mg PO BID 30 Days #60 tablet 09/03/21 [Rx] Follow up Appointment(s)/Referral(s): Heber Moss MD [STAFF PHYSICIAN] - 12/14/20 10:15 am Shobha Tejeda MD [REFERRING] - 1 Week Yuliana Tucker MD [REFERRING] - 12/20/20 11:00 am Patient Instructions/Handouts: Ischemic Stroke (GEN) Activity/Diet/Wound Care/Special Instructions: Activity Limited until follow-up Follow-up with primary care provider upon discharge follow up with cardiology outpatient follow up neurology outpatient Continue current diet Take antibiotics until finished ReCommend to closely monitor blood sugars with glucometer at least 1-3 times daily secondary to new onset diabetes and keep a diary for primary care follow- up continue metformin 500 mg twice daily Discharge Disposition: HOME SELF-CARE
[2020-11-30] MEDS ORDERED: ATORVASTATIN 40 MG TAB PO SCH (21:00)
[2020-12-01] MEDS ORDERED: lisinopriL 10 MG TAB PO SCH (09:00)
== END 2020-11-30 15:10 | disposition home or self-care (01) | DRG 65 ==
LOC: EC 05:52 → 6NMEDSUR 10:19 → OBSVTOIN 11-30 08:04
PROVIDERS: ADMIT Hospitalist; ATTEND Hospitalist
DX: I63.89 Other cerebral infarction (principal); G81.91 Hemiplegia, unspecified affecting right dominant side; N17.9 Acute kidney failure, unspecified; E87.1 Hypo-osmolality and hyponatremia; E11.51 Type 2 diabetes mellitus with diabetic peripheral angiopathy without gangrene; D63.8 Anemia in other chronic diseases classified elsewhere; H70.91 Unspecified mastoiditis, right ear; E11.65 Type 2 diabetes mellitus with hyperglycemia; E86.0 Dehydration; R47.81 Slurred speech; T50.906A Underdosing of unspecified drugs, medicaments and biological substances, initial encounter; I10 Essential (primary) hypertension; R29.700 NIHSS score 0; E78.5 Hyperlipidemia, unspecified; H91.93 Unspecified hearing loss, bilateral; G89.29 Other chronic pain; M54.2 Cervicalgia; Z91.19 Patient's noncompliance with other medical treatment and regimen; Z91.128 Patient's intentional underdosing of medication regimen for other reason; R79.89 Other specified abnormal findings of blood chemistry
CPT/HCPCS: 36415; 70450; 70551; 71046; 80048; 80053; 80061; 80306; 81001; 83036; 83605; 83735; 84443; 84484; 85025; 85610; 85730; 93005; 93306; 93880; 96361; 96374; 96376; 99285

== ENCOUNTER → 2022-02-24 | Outpatient (CLI) | payer MEDICARE ==
--- NOTE | 2022-02-24 15:59 | US ---
EXAMINATION TYPE: US kidneys/renal and bladder DATE OF EXAM: 02/24/2022 COMPARISON: NONE CLINICAL HISTORY: [facility] kidney function study R94.4. abnormal function EXAM MEASUREMENTS: Right Kidney: 11.1 x 5.1 x 5.3 cm Left Kidney: 10.6 x 5.9 x 4.4 cm Right Kidney: multiple cystic areas noted, largest = 4.5 x 3.4 x 4.3cm and complex cystic area = 1.7 x 1.7 x 1.5cm Left Kidney: cystic area lower pole = 2.1 x 2.0 x 1.7cm Bladder: appears wnl Bilateral Jets seen: yes Scattered thin-walled cysts of varying size and shape throughout both kidneys. Nonsimple 1.7 cm thin- walled cyst may have a solid nodular component midpole level right kidney warrants follow-up. The uri nary bladder is adequately distended. Bilateral ureteral jets are seen. IMPRESSION: No hydronephrosis seen bilaterally. Possible Bosniak 3 or 4 1.7 cm cystic lesion midpole level right kidney. Follow-up renal protocol contrast enhanced CT and/or MRI is advised.
== END | disposition home or self-care (01) ==
LOC: RADUSWWP 15:22
PROVIDERS: ATTEND Internal Medicine
DX: R94.4 Abnormal results of kidney function studies (principal)
CPT/HCPCS: 76770

== ENCOUNTER → 2022-03-24 | Outpatient (CLI) | payer MEDICARE ==
--- NOTE | 2022-03-25 20:37 | MR ---
EXAMINATION TYPE: MR kidney wo/w con DATE OF EXAM: 03/24/2022 4:44 PM INDICATION: Patient age:Male; 66 years old; Reason for study: R93.5 ABN FINDINGS ON DX IMAGING,N28.1. Abnormal US. COMPARISON: Ultrasound 02/24/2022 TECHNIQUE: Multiplanar multi-sequence imaging was performed without contrast. Post contrast imaging was performed. Post IV contrast subtraction images were also submitted for review. IV Contrast: 8 cc Gadavist FINDINGS: LOWER CHEST: No gross irregularity. ABDOMEN Liver: High T2/low T1 signal cysts measuring up to 3.4 cm with thin septations. Additional scattered other hepatic cyst with thin septations. No abnormal postcontrast enhancement. Gallbladder and Bile ducts: Unremarkable. Pancreas: Unremarkable. Spleen: Unremarkable. Adrenal glands: Unremarkable. Kidneys: Right: The right kidney demonstrates multiple cysts which are predominantly high T2 signal. The large st in the right mid kidney measures up to 4.2 cm. Postcontrast imaging shows no evidence for suspicio us mass. No evidence of obstructive uropathy. Left: Left kidney demonstrates multiple high T2 low T1 signal cysts without postcontrast enhancement. The largest measuring up to 12 mm. No evidence of obstructive uropathy. Stomach and Bowel: Unremarkable as visualized. Peritoneum: No evidence of pneumoperitoneum, free fluid, or adenopathy. Vasculature: Unremarkable. No aortic aneurysm. Abdominal wall: Fat-containing umbilical hernia. Musculoskeletal: The osseous structures appear intact. IMPRESSION: 1. No suspicious renal masses. Bilateral Bosniak type I and type II cysts. 2. Hepatic minimally complex cysts.
== END | disposition home or self-care (01) ==
LOC: RADMRIMAIN 15:02
PROVIDERS: ATTEND Internal Medicine
DX: N28.1 Cyst of kidney, acquired (principal); K76.89 Other specified diseases of liver; R93.5 Abnormal findings on diagnostic imaging of other abdominal regions, including retroperitoneum
CPT/HCPCS: 74183; A9585

== ENCOUNTER 2023-02-23 16:52 | Emergency (ER) | payer MEDICARE ==
[2023-02-23 17:26] VITALS: TEMP 97.6
--- NOTE | 2023-02-23 17:30 | ED ---
General Adult HPI - General Source: patient, family, RN notes reviewed Mode of arrival: ambulatory Limitations: no limitations <Kathrine Burr - Last Filed: 02/23/23 17:26> - General Source: RN notes reviewed, old records reviewed Limitations: altered mental status, physical limitation (Confusion) - History of Present Illness -: days(s) Radiation: non-radiation Severity scale (1-10): 9 Quality: stabbing Consistency: constant Improves with: none Worsens with: none Associated Symptoms: denies other symptoms, diaphoresis, nausea/vomiting, weakness Treatments Prior to Arrival: none <Rei Wetzel - Last Filed: 02/27/23 18:26> - General Chief complaint: Back Pain/Injury Stated complaint: jaundice - History of Present Illness Initial comments: 67-year-old male presents emergency Department with chief complaint of jaundice. He is sent in by his physician for further evaluation. He states that his s on-in-law noticed this on Thanksgiving. He is unsure if it is getting worse. He also reports generalized weakness for around the same amount of time. (Kathrine Burr) This is a 67-year-old male DF for evaluation by primary care sent in for evaluation of jaundice, discoloration, back pain. Family noticed patient has been getting worse over the last almost going on a week now with significant weakness and decreased activity level. Patient himself is relatively without complaint (Rei Wetzel) - Related Data Home Medications Medication Instructions Recorded Confirmed Escitalopram [Lexapro] 10 mg PO DAILY 11/08/21 02/23/23 Folic Acid 1 mg PO DAILY 11/08/21 02/23/23 Atorvastatin [Lipitor] 80 mg PO DAILY 02/23/23 02/23/23 Cholecalciferol [Vitamin D3 (25 50 mcg PO DAILY 02/23/23 02/23/23 Mcg = 1000 Iu)] Insulin Glargine,Hum.rec.anlog 18 units SQ DAILY 02/23/23 02/23/23 [Lantus Solostar Pen] Linagliptin [Tradjenta] 5 mg PO DAILY 02/23/23 02/23/23 Mv-Min/Folic/K1/Lycopen/Lutein 1 tab PO DAILY 02/23/23 02/23/23 [Centrum Silver Men Tablet] NIFEdipine XL [Procardia Xl] 30 mg PO DAILY 02/23/23 02/23/23 carvediloL [Coreg] 6.25 mg PO BID 02/23/23 02/23/23 Previous Rx's Medication Instructions Recorded Clopidogrel [Plavix] 75 mg PO DAILY #30 tab 11/30/20 Allergies Allergy/AdvReac Type Severity Reaction Status Date / Time No Known Drug Allergies Allergy Unknown Verified 02/23/23 21:49 Review of Systems ROS Other: All systems not noted in ROS Statement are negative. <Kathrine Burr - Last Filed: 02/23/23 17:26> ROS Other: All systems not noted in ROS Statement are negative. <Rei Wetzel - Last Filed: 02/27/23 18:26> ROS Statement: Those systems with pertinent positive or pertinent negative responses have been documented in the HPI. Past Medical History Past Medical History: CVA/TIA, Diabetes Mellitus, Hyperlipidemia, Hypertension History of Any Multi-Drug Resistant Organisms: None Reported Past Surgical History: No Surgical Hx Reported Past Psychological History: No Psychological Hx Reported Smoking Status: Never smoker Past Alcohol Use History: None Reported Past Drug Use History: None Reported <Kathrine Burr - Last Filed: 02/23/23 17:26> General Exam Limitations: no limitations <Kathrine Burr - Last Filed: 02/23/23 17:26> General appearance: alert, in no apparent distress, anxious Head exam: Present: atraumatic, normocephalic, normal inspection Eye exam: Present: normal appearance, PERRL, EOMI. Absent: scleral icterus, conjunctival injection, periorbital swelling ENT exam: Present: normal exam, mucous membranes moist Neck exam: Present: normal inspection. Absent: tenderness, meningismus, lymphadenopathy Respiratory exam: Present: normal lung sounds bilaterally. Absent: respiratory distress, wheezes, rales, rhonchi, stridor Cardiovascular Exam: Present: regular rate, normal rhythm, normal heart sounds. Absent: systolic murmur, diastolic murmur, rubs, gallop, clicks GI/Abdominal exam: Present: soft, normal bowel sounds. Absent: distended, tenderness, guarding, rebound, rigid Extremities exam: Present: normal inspection, full ROM, normal capillary refill. Absent: tenderness, pedal edema, joint swelling, calf tenderness Back exam: Present: normal inspection Neurological exam: Present: alert, oriented X3, CN II-XII intact Psychiatric exam: Present: normal affect, normal mood Skin exam: Present: warm, dry, intact, normal color. Absent: rash <Rei Wetzel - Last Filed: 02/27/23 18:26> - General Exam Comments Initial Comments: Visual Physical Exam Vital signs reviewed General: Well-appearing, nontoxic, no acute distress. Head: Normocephalic, atraumatic Eyes: PERRLA, EOMI ENT: Airway patent Chest: Nonlabored breathing Skin: No visual rash, normal skin tone Neuro: Alert and oriented 3 Musculoskeletal: No gross abnormalities (Kathrine Burr) Course <Rei Wetzel - Last Filed: 02/27/23 18:26> Vital Signs 02/23/23 02/23/23 02/23/23 17:01 22:39 23:34 Temperature 97.6 F Pulse Rate 65 77 Respiratory 16 19 16 Rate Blood Pressure 93/61 123/71 125/66 O2 Sat by Pulse 97 95 Oximetry 02/24/23 00:18 Temperature Pulse Rate Respiratory 16 Rate Blood Pressure 122/69 O2 Sat by Pulse 96 Oximetry - Reevaluation(s) Reevaluation #1: 02/23/23 22:39 Medical record is reviewed (Rei Wetzel) Reevaluation #2: 02/23/23 22:39 Patient still feeling significantly altered here in the ER (Rei Wetzel) Reevaluation #3: 02/23/23 22:39 Patient for results and questions answered 02/23/23 22:39 Family first discharged outside facility, kp, (Rei Wetzel) Reevaluation #4: 02/23/23 22:39 Was pt. sent in by a medical professional or institution (, PA, MECHANICAL DEVELOPER [employer]OVER, urgent care, hospital, or alf...) When possible be specific @ -no Did you speak to anyone other than the patient for history (EMS, parent, family, police, friend...)? What history was obtained from this source @ -no Did you review nursing and triage notes (agree or disagree)? Why? @ -agree Are old charts reviewed (outside hosp., previous admission, EMS record, old EKG, old radiological studies, urgent care reports/EKG's, alf records)? Report findings @ -yes Differential Diagnosis (chest pain, altered mental status, abdominal pain women, abdominal pain men, vaginal bleeding, weakness, fever, dyspnea, syncope, headache, dizziness, GI bleed, back pain, seizure, CVA, palpatations, mental health, musculoskeletal)? @ -prior EKG interpreted by me (3pts min.). @ -yes X-rays interpreted by me (1pt min.). @ -yes CT interpreted by me (1pt min.). @ -yes U/S interpreted by me (1pt. min.). @ -yes What testing was considered but not performed or refused? (CT, X-rays, U/S, labs)? Why? @ -none What meds were considered but not given or refused? Why? @ -none Did you discuss the management of the patient with other professionals (professionals i.e. , PA, MECHANICAL DEVELOPER [employer], lab, RT, psych nurse, social sciences department chair, rate examiner, teacher, president and chief operating officer, casework manager)? Give summary @ -no Was smoking cessation discussed for >3mins.? @ -no Was critical care preformed (if so, how long)? @ -no Were there social determinants of health that impacted care today? How? (Homelessness, low income, unemployed, alcoholism, drug addiction, transportation, low edu. Level, literacy, decrease access to med. care, skilled nursing, rehab)? @ -none Was there de-escalation of care discussed even if they declined (Discuss DNR or withdrawal of care, Hospice)? DNR status @ -no What co-morbidities impacted this encounter? (DM, HTN, Smoking, COPD, CAD, Cancer, CVA, ARF, Chemo, Hep., AIDS, mental health diagnosis, sleep apnea, morbid obesity)? @ -none Was patient admitted / discharged? Hospital course, mention meds given and route, prescriptions, significant lab abnormalities, going to OR and other pertinent info. @ - 67 male to the emergency department for evaluation, patient has significant jaundice, hepatorenal syndrome with renal failure, cholecystitis, pancreatitis, gallstone dilation gallbladder ideation, patient place on antibiotics has no other significant symptoms given hydration can be transferred for definitive care Discharged Undiagnosed new problem with uncertain prognosis? @ -no Drug Therapy requiring intensive monitoring for toxicity (Heparin, Nitro, I nsulin, Cardizem)? @ -no Were any procedures done? @ -no Diagnosis/symptom? @ -Jaundice, cholecystitis, pancreatitis, Acute, or Chronic, or Acute on Chronic? @ -Acute Uncomplicated (without systemic symptoms) or Complicated (systemic symptoms)? @ -Complicated Side effects of treatment? @ -no Exacerbation, Progression, or Severe Exacerbation? @ -exacerbation Poses a threat to life or bodily function? How? (Chest pain, USA, NM, pneumonia, PE, COPD, DKA, ARF, appy, cholecystitis, CVA, Diverticulitis, Homicidal, Suicidal, threat to staff... and all critical care pts) @ -yes multiple significant medical comorbidities (Rei Wetzel) Reevaluation #5: 02/23/23 22:40 Differential Altered Mental Status: Hypoglycemia, DKA, hypercapnia, ETOH, overdose, CO poisoning, trauma, myxedema coma, HTN encephalopathy, infection, encephalitis, psychosis, intercranial hemorrhage, hepatic encephalopathy, meningitis, CVA, this is not meant to be an all-inclusive list (Rei Wetzel) - Consultations Consultation #1: spoke w Dr Irwin will transfer to outside facility (Rei Wetzel) EKG Findings - EKG Comments: EKG Findings:: EKG is sinus 66 IL 136 QRS 94 QTC 438 - EKG Results: EKG: interpreted by ERMD <Rei Wetzel - Last Filed: 02/27/23 18:26> Medical Decision Making <Kathrine Burr - Last Filed: 02/23/23 17:26> - Lab Data Result diagrams: 02/23/23 17:31 02/23/23 17:31 - EKG Data -: EKG Interpreted by Ms - Radiology Data Radiology results: report reviewed (Ultrasounds positive for pericolic systolic fluid, cholecystitis, CT head and pelvis is obstruction of the biliary system), image reviewed <Rei Wetzel - Last Filed: 02/27/23 18:26> - Medical Decision Making I performed the quick note portion of this chart. Electronically signed by Kathrine Burr PA-C (Kathrine Burr) 67 male to the emergency department for evaluation, patient has significant jaundice, periorbital syndrome with renal failure, cholecystitis, pancreatitis, gallstone dilation gallbladder ideation, patient place on antibiotics has no other significant symptoms given hydration can be transferred for definitive care (Rei Wetzel) - Lab Data Lab Results 02/23/23 02/23/23 02/23/23 Range/Units 17:31 17:31 17:31 WBC 9.7 (3.8-10.6) k/uL RBC 3.79 L (4.30-5.90) m/uL Hgb 10.5 L (13.0-17.5) gm/dL Hct 32.8 L (39.0-53.0) % MCV 86.3 (80.0-100.0) fL MCH 27.8 (25.0-35.0) pg MCHC 32.2 (31.0-37.0) g/dL RDW 17.6 H (11.5-15.5) % Plt Count 191 (150-450) k/uL MPV 7.8 Neutrophils % 80 % Lymphocytes % 7 % Monocytes % 7 % Eosinophils % 2 % Basophils % 0 % Neutrophils # 7.7 (1.3-7.7) k/uL Lymphocytes # 0.7 L (1.0-4.8) k/uL Monocytes # 0.7 (0-1.0) k/uL Eosinophils # 0.2 (0-0.7) k/uL Basophils # 0.0 (0-0.2) k/uL Hypochromasia Moderate Anisocytosis Slight PT 12.0 (10.0-12.5) sec INR 1.1 (<1.2) APTT 27.5 (22.0-30.0) sec Sodium 139 (137-145) mmol/L Potassium 3.8 (3.5-5.1) mmol/L Chloride 111 H (98-107) mmol/L Carbon Dioxide 9 L* (22-30) mmol/L Anion Gap 19 mmol/L BUN 56 H (9-20) mg/dL Creatinine 5.24 H (0.66-1.25) mg/dL Est GFR (CKD-EPI)AfAm 12 (>60 ml/min/1.73 sqM) Est GFR (CKD-EPI)NonAf 10 (>60 ml/min/1.73 sqM) Glucose 183 H (74-99) mg/dL Plasma Lactic Acid Redd (0.7-2.0) mmol/L Calcium 7.9 L (8.4-10.2) mg/dL Total Bilirubin 6.3 H (0.2-1.3) mg/dL AST 215 H (17-59) U/L ALT 124 H (4-49) U/L Alkaline Phosphatase 624 H (38-126) U/L Ammonia (<30) umol/L Total Protein 7.4 (6.3-8.2) g/dL Albumin 3.5 (3.5-5.0) g/dL Lipase 1095 H (23-300) U/L 02/23/23 Range/Units 18:58 WBC (3.8-10.6) k/uL RBC (4.30-5.90) m/uL Hgb (13.0-17.5) gm/dL Hct (39.0-53.0) % MCV (80.0-100.0) fL MCH (25.0-35.0) pg MCHC (31.0-37.0) g/dL RDW (11.5-15.5) % Plt Count (150-450) k/uL MPV Neutrophils % % Lymphocytes % % Monocytes % % Eosinophils % % Basophils % % Neutrophils # (1.3-7.7) k/uL Lymphocytes # (1.0-4.8) k/uL Monocytes # (0-1.0) k/uL Eosinophils # (0-0.7) k/uL Basophils # (0-0.2) k/uL Hypochromasia Anisocytosis PT (10.0-12.5) sec INR (<1.2) APTT (22.0-30.0) sec Sodium (137-145) mmol/L Potassium (3.5-5.1) mmol/L Chloride (98-107) mmol/L Carbon Dioxide (22-30) mmol/L Anion Gap mmol/L BUN (9-20) mg/dL Creatinine (0.66-1.25) mg/dL Est GFR (CKD-EPI)AfAm (>60 ml/min/1.73 sqM) Est GFR (CKD-EPI)NonAf (>60 ml/min/1.73 sqM) Glucose (74-99) mg/dL Plasma Lactic Acid Redd 1.1 (0.7-2.0) mmol/L Calcium (8.4-10.2) mg/dL Total Bilirubin (0.2-1.3) mg/dL AST (17-59) U/L ALT (4-49) U/L Alkaline Phosphatase (38-126) U/L Ammonia 14 (<30) umol/L Total Protein (6.3-8.2) g/dL Albumin (3.5-5.0) g/dL Lipase (23-300) U/L Critical Care Time Critical Care Time: Yes Total Critical Care Time: 31 <Rei Wetzel - Last Filed: 02/27/23 18:26> Disposition <Kathrine Burr - Last Filed: 02/23/23 17:26> Is patient prescribed a controlled substance at d/c from ED?: No Time of Disposition: 22:40 - Out of Hospital Transfer - Req. Specs Out of Hospital Transfer - Requested Specifics: Other Emergency Center ([facility]) <Rei Wetzel - Last Filed: 02/27/23 18:26> Clinical Impression: Weakness, ARAM (acute kidney injury), Cholecystitis, Acute renal failure, Hyperbilirubinemia, Acute pancreatitis, Gallstone pancreatitis Disposition: OTHER INSTITUTION NOT DEFINED Condition: Serious Referrals: Astrid Manrique MD [REFERRING] - 1-2 days
[2023-02-23 17:50] LABS: Anisocytosis Slight; Basophils % (A) 0 %; Eosinophils # (A) 0.2 k/uL (0-0.7); Eosinophils % (A) 2 %; HCT 32.8 % (39.0-53.0); HGB 10.5 gm/dL (13.0-17.5); Hypochromasia Moderate; Lymphocytes # (A) 0.7 k/uL (1.0-4.8); Lymphocytes % (A) 7 %; MCH 27.8 pg (25.0-35.0); MCHC 32.2 g/dL (31.0-37.0); MCV 86.3 fL (80.0-100.0); Mean Platelet Volume 7.8; Monocytes # (A) 0.7 k/uL (0-1.0); Monocytes % (A) 7 %; Neutrophils # (A) 7.7 k/uL (1.3-7.7); Neutrophils % (A) 80 %; Platelet Count 191 k/uL (150-450); RBC 3.79 m/uL (4.30-5.90); RDW 17.6 % (11.5-15.5); WBC 9.7 k/uL (3.8-10.6)
[2023-02-23 18:05] LABS: ALT 124 U/L (4-49); AST 215 U/L (17-59); African American GFR (CKD) 12 (>60 ml/min/1.73 sqM); Albumin 3.5 g/dL (3.5-5.0); Anion Gap 19 mmol/L; Blood Urea Nitrogen 56 mg/dL (9-20); Calcium 7.9 mg/dL (8.4-10.2); Chloride 111 mmol/L (98-107); Glucose 183 mg/dL (74-99); Lipase 1095 U/L (23-300); Non-African American GFR(CKD) 10 (>60 ml/min/1.73 sqM); Potassium 3.8 mmol/L (3.5-5.1); Sodium 139 mmol/L (137-145); Total Bilirubin 6.3 mg/dL (0.2-1.3); Total Protein 7.4 g/dL (6.3-8.2)
[2023-02-23 18:07] LABS: Alkaline Phosphatase 624 U/L (38-126); Carbon Dioxide 9 mmol/L (22-30)
[2023-02-23 18:26] LABS: INR 1.1 (<1.2)
[2023-02-23 18:27] LABS: Partial Thromboplastin Time 27.5 sec (22.0-30.0)
[2023-02-23 19:27] LABS: Lactic Acid, Venous 1.1 mmol/L (0.7-2.0)
--- NOTE | 2023-02-23 20:36 | US ---
EXAMINATION TYPE: US gallbladder DATE OF EXAM: 02/23/2023 COMPARISON: MRI: 03/24/22 CLINICAL INDICATION: Male, 67 years old with history of pain; pt states sent him here for jaundic e, but pt didn't notice it. Weakness x 4-5 weeks TECHNIQUE: Multiple sonographic images of the right upper quadrant are obtained. FINDINGS: EXAM MEASUREMENTS: Liver Length: 15.4 cm Gallbladder Wall: 0.22 cm CBD: 1.7 cm Right Kidney: 10.9 x 5.9 x 6.0 cm Pancreas: Parts seen appear wnl Liver: 2 cystic areas seen in left lobe, largest = 4.1 x 3.5 x 3.1cm. Vessels in right lobe appear d ilated Gallbladder: Hydropic with some sludge seen there may be trace pericholecystic fluid seen in a coupl e images. Evidence for sonographic Robertson's sign: No CBD: Dilated, no obvious stone seen Right Kidney: 2 Cystic areas seen, largest = 4.8 x 4.0 x 4.0cm in sup/mid pole IMPRESSION: 1. Distended gallbladder with biliary sludge. There may be some pericholecystic fluid. Correlate for signs and symptoms of acute cholecystitis. 2. Simple appearing right kidney and liver cysts.
[2023-02-23] MEDS ORDERED: SODIUM CHLORIDE 0.9% 1,000 ML IV STA (21:17)
[2023-02-23] MEDS ORDERED: SODIUM CHLORIDE 0.9% 500 ML 500 ML IV STA (21:17)
[2023-02-23] MEDS ORDERED: SODIUM CHLORIDE 0.9% 1,000 ML IV SCH (21:30)
--- NOTE | 2023-02-23 21:34 | CT ---
EXAMINATION TYPE: CT abdomen pelvis wo con CT DLP: 688.2 mGycm, Automated exposure control for dose reduction was used. DATE OF EXAM: 02/23/2023 9:12 PM COMPARISON: MRI 03/24/2022. CLINICAL INDICATION:Male, 67 years old with history of pain; Jaundice, poor kidney function (GFR 10) TECHNIQUE: Axial CT of the ;CT abdomen pelvis wo con;Sagittal and coronal reformats were created on a separate workstation. Contrast used: mL of , (none if empty) Oral contrast used: without Oral Contrast (none if empty) FINDINGS: LOWER CHEST: Unremarkable ABDOMEN LIVER: Simple appearing renal cysts GALLBLADDER AND BILE DUCTS: There is biliary dilation involving predominantly the intrahepatic and ce ntral extrahepatic. Evaluation of the duct is limited. There appears to be Dobbhoff series 202 image 51. Findings are new from 03/24/2022. Common hepatic duct measures up to 23 mm. The gallbladder is di stended PANCREAS: Fat stranding changes throughout the abdomen are new and some of what centered around the p ancreas. SPLEEN: Unremarkable. ADRENAL GLANDS: Unremarkable. KIDNEYS AND URETERS: No evidence of hydronephrosis or renal calculus. The ureters are unremarkable. S imple appearing renal cysts similar prior MRI. PELVIS BLADDER: Unremarkable REPRODUCTIVE: Unremarkable. ABDOMEN & PELVIS STOMACH AND BOWEL: No evidence of bowel obstruction. The appendix is normal. PERITONEUM/RETROPERITONEUM: No evidence of pneumoperitoneum or free fluid. VASCULATURE: No evidence of aortic aneurysm. MUSCULOSKELETAL: No acute osseous abnormalities LYMPH NODES: No gross evidence for lymphadenopathy. SOFT TISSUE/ABDOMINAL WALL: Unremarkable IMPRESSION: 1. Dilation of the biliary system with possible obstruction bridging from the pancreatic head. Fur er evaluation with MRI with IV contrast MRCP pancreatic mass protocol recommended. 2. Changes in the abdomen could be secondary to findings in #1. Consider correlation with lipase for superimposed hepatitis. 3. Distended gallbladder fossa likely secondary to #1. Correlate for signs of cholecystitis.
[2023-02-23] MEDS ORDERED: AMPICILLIN-SULBACTAM 3 GM in SODIUM CHLORIDE 0.9% 100 ML IVPB STA (22:37)
[2023-02-23 22:55] VITALS: PULSE 77
[2023-02-23 23:47] VITALS: RESP 16
[2023-02-24 00:23] VITALS: BP 122/69
== END 2023-02-24 00:28 | disposition other institution (70) ==
LOC: EC 16:52
DX: N17.9 Acute kidney failure, unspecified (principal); K81.9 Cholecystitis, unspecified; K85.90 Acute pancreatitis without necrosis or infection, unspecified; E80.6 Other disorders of bilirubin metabolism; K85.10 Biliary acute pancreatitis without necrosis or infection; K76.89 Other specified diseases of liver; K82.8 Other specified diseases of gallbladder; E11.9 Type 2 diabetes mellitus without complications; I10 Essential (primary) hypertension; E78.5 Hyperlipidemia, unspecified; Z79.4 Long term (current) use of insulin; Z79.899 Other long term (current) drug therapy; Z79.84 Long term (current) use of oral hypoglycemic drugs
CPT/HCPCS: 36415; 93005; 80053; 82140; 83605; 83690; 85025; 85610; 85730; 76705; 74176; 99291; 96365; 96361 ×2; J0295